=== PATIENT | female | born 1940 | race Caucasian/White ===

== ENCOUNTER 2019-06-07 09:30 | Inpatient (IN) | payer OTHER ==
[2019-05-30 12:41] VITALS: BMI 34.9
[2019-07-12] MEDS ORDERED: TRANEXAMIC ACID 1000 MG/10 ML VIAL IVPUSH ONE (07:26)
[2019-07-12] MEDS ORDERED: CEFAZOLIN 1 GM/D5W 1 GRAM/50 ML BAG IVPB ONE (07:26)
--- NOTE | 2019-07-12 07:58 | HP ---
[facility] - Chief Complaint Chief Complaint: right hip pain - Past Medical History Allergies/Adverse Reactions: Allergies Allergy/AdvReac Type Severity Reaction Status Date / Time No Known Allergies Allergy Verified 07/12/19 07:28 - Current Medications Current Medications: Home Medications Medication Instructions Recorded Travoprost [Travatan Z] 2.5 ml OU DAILY 02/06/14 Cholecalciferol (Vitamin D3) 2,000 unit PO DAILY 05/30/19 [Vitamin D] Donepezil HCl 10 mg PO HS 05/30/19 Metoprolol Succinate 50 mg PO AM 05/30/19 Metoprolol Succinate 100 mg PO HS 05/30/19 Satellite Physical Exam - Physical Examination Vital Signs: Vital Signs Period Temp Pulse Resp BP Sys/Trammell Pulse Ox Last 24 Hr 97.7 F 79 18 140/81 100 General Appearance: Well Nourished, Well Developed, Alert & Oriented x3 ENT: Clear Lung: Normal air movement Heart: Regular rate & rhythm Extremities: Other (right hip- + ttp, decr rom, nvi, xrays show grade 4 hip djd) Neurological: Intact, Alert, Oriented Satellite Impression/Plan - Impression/Plan Impression: right hip djd Operative Procedure: right suki thr Date to be Performed: 07/12/19
[2019-07-12 08:31] LABS: INR 1.44 (0.82-1.09)
[2019-07-12] MEDS: oxyCODONE HCL 10 MG SUSTAINED ACTING TABLET PO ONE ×2 (08:40→18:46)
[2019-07-12] MEDS: CELECOXIB 200 MG CAPSULE PO ONE ×2 (08:40→18:47)
[2019-07-12] MEDS: GABAPENTIN 300 MG CAPSULE (FP) PO ONE ×2 (08:40→18:47)
[2019-07-12] MEDS ORDERED: DEXAMETHASONE SOD PHOSPHATE/PF 10 MG/ML SDV ONE (09:08)
[2019-07-12] MEDS ORDERED: EPINEPHrine/PF 1 MG/1 ML (1:1,000) AMPULE ONE (09:08)
[2019-07-12] MEDS ORDERED: MIDAZOLAM HCL 2 MG/2 ML SINGLE DOSE VIAL ONE (09:08)
[2019-07-12] MEDS ORDERED: VANCOMYCIN 1,000 MG VIAL (RESTRICTED TO ID ONLY) ONE (09:39)
[2019-07-12] MEDS ORDERED: ceFAZolin SODIUM 1 GM VIAL ONE ×2 (09:39→09:58)
[2019-07-12] MEDS ORDERED: METOPROLOL TARTRATE 5 MG/5 ML VIAL ONE (09:56)
[2019-07-12] MEDS ORDERED: PROPOFOL 20 ML ONE (09:58)
[2019-07-12] MEDS ORDERED: MAGNESIUM HYDROX 2400MG/30ML ORAL SUSPENSION 30 ML CUP PO PRN (10:15)
[2019-07-12] MEDS ORDERED: LACTATED RINGERS SOLUTION 1,000 ML IV SCH (10:15)
[2019-07-12] MEDS ORDERED: MAG HYDROX/AL HYDROX/SIMETH 30 ML UNIT-DOSE CUP PO PRN (10:15)
[2019-07-12] MEDS ORDERED: ONDANSETRON 4 MG/2 ML VIAL ONE (10:15)
[2019-07-12] MEDS ORDERED: DEXAMETHASONE SOD PHOSPHATE 4 MG/1 ML VIAL ONE (10:15)
[2019-07-12] MEDS ORDERED: SUCCINYLCHOLINE CHLORIDE 200 MG/10 ML SYRINGE ONE (10:25)
[2019-07-12] MEDS ORDERED: VANCOMYCIN 1,000 MG VIAL (RESTRICTED TO ID ONLY) IVPB ONE (11:10)
--- NOTE | 2019-07-12 11:35 | OP ---
Operative Note - Note: Operative Date: 07/12/19 (lloyd) Pre-Operative Diagnosis: right hip djd Operation: right suki thr Post-Operative Diagnosis: Same as Pre-op Surgeon: Chan Heard Leather Currier: Jani Burch Anesthesiologist/STEAMING MACHINE OPERATOR: Ilia Simeon Anesthesia: Spinal, Local Specimens Removed: femoral head Estimated Blood Loss (mls): 500 Operative Report Dictated: Yes
[2019-07-12 12:34] LABS: HEMATOCRIT 32.6 % (32.4-45.2); HEMOGLOBIN 10.3 GM/dl (10.7-15.3); MCHC 31.6 g/dl (32.0-36.0); MEAN CELL VOLUME 82.3 fl (80-96); PLATELET COUNT 185 K/MM3 (134-434); RBC 3.97 M/mm3 (3.60-5.2); RDW 28.1 % (11.6-15.6); WHITE BLOOD COUNT 12.4 K/mm3 (4.0-10.8)
--- NOTE | 2019-07-12 13:06 | SPEC ---
DATE OF OPERATION: 07/12/2019 PREOPERATIVE DIAGNOSIS: Degenerative joint disease right hip. POSTOPERATIVE DIAGNOSIS: Degenerative joint disease right hip. PROCEDURE PERFORMED: Right total hip replacement with robotic-assisted navigation (MAKOplasty). SURGICAL ATTENDING: Chan Heard MD MECHANICAL SOUND TECHNICIAN: PATTY Napier ANESTHESIA: Regional and spinal. CLOSURE: A Trident II press-fit 46 mm acetabulum, a No. 6 Accolade II femoral stem, a standard MDM head. Number 1 Vicryl for capsule and fascia, 0 and 2-0 subcutaneous, 3-0 V-Loc 90 for skin with skin glue, 4-0 undyed Vicryl for pin sites. ESTIMATED BLOOD LOSS: Approximately 150 mL. COMPLICATIONS: None. CONDITION: To the recovery room in stable condition. DESCRIPTION OF PROCEDURE: The patient was taken to the operating room on July 12, 2019. General and regional anesthesia was administered by the anesthesiologist. IV Kefzol and TXA were administered prophylactically prior to the case. The patient was placed in the lateral decubitus position will all prominences well-padded. The right hip area was prepped and draped in the usual sterile fashion. Using 3 small stab incisions over the iliac crest, 3 threaded pins were drilled in power fashion through the 2 tables of the crest. These pins were fastened and the navigation array for the Daniel navigation system. Next, a 12 to 15-cm curved longitudinal incision over the posterolateral aspect of the greater trochanter was incised. Hemostasis was achieved with Bovie cautery. Sharp dissection was carried down to level of the fascia. The fascia was opened the entire length of the incision, spreading the fibers of the gluteus lee ann in the direction of origin. A Charnley retractor was placed in this layer. Care was taken not to impale the sciatic nerve. The short external rotators were detached off the insertion of the greater trochanter and peeled off the capsule. A posterior capsulotomy was then performed. A check point was malleted into the greater trochanter and a point on the inferior pole of the patella was obtained as well. These 2 points were used to assess the preoperative offset and limb lengths of the hip. The hip was then dislocated. The femoral neck was then osteotomized down to the appropriate level as directed by the navigation device. Anterior and posterior retractors were placed, exposing the acetabulum. A circumferential labral excision was performed. A check point was malleted into the acetabulum as well. Multiple sites inside the acetabulum and around the rim were utilized to register the acetabulum with the navigation device. An excellent registration of less than 0.5 mm was obtained. The hip was then reamed with the appropriate reamer down to the appropriate depth, with the appropriate orientation and version as assessed on our preoperative plan for this patient. The reamer was removed and the acetabulum was inspected to have good bleeding surfaces throughout. The real acetabular cup was then malleted down into place, with the holes in the appropriate position, until an excellent fixation was obtained. No screws were necessary. The navigation device ensured appropriate orientation and version, with the depth as predetermined. The appropriate liner was then clipped into place. Attention was directed to the femur. The proximal femur was prepared by use a box chisel, a canal finder and serial broaches until the broach achieved excellent rigidity in the proximal femur with the appropriate version being applied. A calcar planer was used to smooth off the calcar flush with the trial components. A trial reduction with the appropriate head was done, and the hip was reduced. The hip was taken through a range of motion from full extension with external rotation to marked flexion, and was stable at 90 degrees of flexion. It was stable to marked abduction and internal rotation, with a positive hang test and negative telescoping. Limb lengths were ascertained visually as well as with the navigation device to be within the targeted range for this patient. The trial component was removed. The real component was then malleted into place. The head was cold welded to the trunnion, and the hip was reduced. Range of motion, stability and limb lengths were as described in the trial component. Then the hip was pulse antibiotic irrigated. Vancomycin powder was placed in the hip joint. The capsule was closed. The fascia was then closed as well using number 1 Vicryl interrupted suture, 0 and 2-0 subcutaneous, and 3-0 V-Loc for the skin. 4-0 undyed Vicryl was used to close the pin sites after the pins were removed. All check points were also removed. Sterile Aquacel dressing was applied. The patient was awakened from anesthesia and transferred into the supine position. Bilateral SCDs and an abduction pillow were placed. X-rays revealed excellent position of the components. The patient was transferred to the recovery room in stable condition, with no complications. Estimated blood loss was less than 100 mL. Cesar [id number]
[2019-07-12] MEDS ORDERED: PROMETHAZINE HCL 25 MG/1 ML VIAL IVPUSH PRN (14:08)
[2019-07-12] MEDS ORDERED: oxyCODONE HCL 5 MG TABLET PO PRN ×2 (14:08)
[2019-07-12] MEDS: ACETAMINOPHEN 325 MG TABLET (FP) PO SCH ×2 (15:02→20:30)
[2019-07-12] MEDS: ONDANSETRON 4 MG/2 ML VIAL IVPUSH PRN (17:10)
[2019-07-12] MEDS: CEFAZOLIN 1 GM/D5W 1 GRAM/50 ML BAG IVPB SCH (18:13)
[2019-07-12] MEDS: QUINAPRIL HCL 20 MG TABLET (FP) PO SCH (22:00)
[2019-07-12] MEDS: SENNOSIDES/DOCUSATE COMBO (SENNA PLUS) TABLET (UD) PO SCH (22:01)
[2019-07-12] MEDS: oxyCODONE HCL 10 MG SUSTAINED ACTING TABLET PO SCH (22:01)
[2019-07-12] MEDS: DONEPEZIL HCL 10 MG TABLET (FP) PO SCH (22:01)
[2019-07-12] MEDS: LATANOPROST 0.005% OPHTH SOLN 2.5ML BOTTLE OU SCH (22:02)
[2019-07-12] MEDS ORDERED: PT OWN MED DRAWER 7, Y5N ONE (22:07)
[2019-07-13] MEDS: CEFAZOLIN 1 GM/D5W 1 GRAM/50 ML BAG IVPB SCH (02:02)
[2019-07-13] MEDS: ACETAMINOPHEN 325 MG TABLET (FP) PO SCH ×4 (03:26→21:28)
[2019-07-13] MEDS: ONDANSETRON 4 MG/2 ML VIAL IVPUSH PRN (04:30)
[2019-07-13] MEDS: amLODIPine BESYLATE 2.5 MG TABLET (FP) PO SCH (06:13)
[2019-07-13 07:29] LABS: HEMATOCRIT 32.8 % (32.4-45.2); HEMOGLOBIN 10.6 GM/dl (10.7-15.3); MCHC 32.4 g/dl (32.0-36.0); MEAN CELL VOLUME 83.4 fl (80-96); MEAN PLT VOLUME 10.4 fl (7.5-11.1); PLATELET COUNT 163 K/MM3 (134-434); RBC 3.93 M/mm3 (3.60-5.2); RDW 27.6 % (11.6-15.6)
[2019-07-13] MEDS: SENNOSIDES/DOCUSATE COMBO (SENNA PLUS) TABLET (UD) PO SCH ×2 (09:02→21:29)
[2019-07-13] MEDS: MULTIVITAMINS (DAILY MVI) TABLET (FP) PO SCH (09:02)
[2019-07-13] MEDS: oxyCODONE HCL 10 MG SUSTAINED ACTING TABLET PO SCH ×2 (09:02→21:29)
[2019-07-13] MEDS: PANTOPRAZOLE 40 MG TABLET (FP) PO SCH (09:02)
[2019-07-13] MEDS: QUINAPRIL HCL 20 MG TABLET (FP) PO SCH ×2 (09:04→21:30)
--- NOTE | 2019-07-13 09:19 | PN ---
Progress Note (short form) - Note Progress Note: Ortho Pt seen and examined s/p right suki thr pod #1 Selected Entries 07/13/19 06:00 Temperature 97.5 F L Pulse Rate 72 Respiratory 18 Rate Blood Pressure 124/61 Laboratory Tests 07/13/19 06:45 WBC 13.0 H Hgb 10.6 L Hct 32.8 Plt Count 163 dressing c/d/i, calf soft, nt nvi a/p re-start coumadin tomorrow PT hip precautions dvt ppx pain control d/c home tomorrow if stable
[2019-07-13] MEDS ORDERED: WARFARIN NA 5 MG TABLET (UD) PO SCH (10:00)
[2019-07-13] MEDS ORDERED: PATIENT'S OWN MEDICATION (NON-FORMULARY) (Travoprost [Travatan Z] 2.5 ML) OU SCH (10:00)
--- NOTE | 2019-07-13 17:42 | PN ---
Progress Note, Physician Chief Complaint: s/p right total hip replacement under spinal anesthesia post op day one. 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 - Current Medication List Current Medications: Active Medications Acetaminophen (Tylenol -) 650 mg PO Q6H [facility] Stop: 07/15/19 14:59 Last Admin: 07/13/19 15:00 Dose: 650 mg Al Hydroxide/Mg Hydroxide (Mylanta Oral Suspension -) 30 ml PO Q4H PRN PRN Reason: DYSPEPSIA Amlodipine Besylate (Norvasc -) 2.5 mg PO AM [facility] Last Admin: 07/13/19 06:13 Dose: 2.5 mg Donepezil HCl (Aricept -) 10 mg PO HS [facility] Fentanyl (Sublimaze Injection -) 50 mcg IVPUSH [id number] PRN PRN Reason: PAIN-PACU ORDER X 4 DOSES ONLY Latanoprost (Xalatan 0.005% Eye Drops -) 1 drop OU HS [facility] Last Admin: 07/12/19 22:02 Dose: 1 drop Magnesium Hydroxide (Milk Of Magnesia -) 30 ml PO PRN PRN PRN Reason: CONSTIPATION Metoprolol Succinate (Toprol Xl -) 50 mg PO AM [facility] Last Admin: 07/13/19 06:11 Dose: Not Given Metoprolol Succinate (Toprol Xl -) 100 mg PO HS [facility] Last Admin: 07/12/19 22:02 Dose: Not Given Multivitamins/Minerals/Vitamin C (Tab-A-Vit -) 1 tab PO DAILY [facility] Last Admin: 07/13/19 09:02 Dose: 1 tab Oxycodone HCl (Roxicodone -) 5 mg PO Q3H PRN PRN Reason: PAIN LEVEL 1-5 Last Admin: 07/12/19 20:31 Dose: 5 mg Oxycodone HCl (Roxicodone -) 10 mg PO Q3H PRN PRN Reason: PAIN LEVEL 6-10 Oxycodone HCl (Oxycontin -) 10 mg PO BID [facility] Stop: 07/15/19 14:08 Last Admin: 07/13/19 09:02 Dose: 10 mg Pantoprazole Sodium (Protonix -) 40 mg PO DAILY [facility] Last Admin: 07/13/19 09:02 Dose: 40 mg Promethazine HCl (Phenergan Injection -) 12.5 mg IVPUSH Q6H PRN PRN Reason: NAUSEA-FOR RESCUE AFTER 15 MIN Quinapril HCl (Accupril -) 20 mg PO BID [facility] Last Admin: 07/13/19 09:04 Dose: 20 mg Senna/Docusate Sodium (Pericolace -) 2 tablet PO BID [facility] Last Admin: 07/13/19 09:02 Dose: 2 tablet Warfarin Sodium (Coumadin -) 5 mg PO DAILY [facility] - Objective Vital Signs: Vital Signs Temperature 97.8 F 07/13/19 14:05 Pulse Rate 79 07/13/19 14:05 Respiratory Rate 16 07/13/19 14:05 Blood Pressure 120/54 L 07/13/19 14:05 O2 Sat by Pulse Oximetry (%) 97 07/13/19 14:05 Constitutional: Yes: Well Nourished Cardiovascular: Yes: WNL Respiratory: Yes: WNL Gastrointestinal: Yes: WNL Labs: CBC, BMP 07/13/19 06:45 INR, PTT INR 1.44 (0.82-1.09) H 07/12/19 08:10 Assessment/Plan Pain controlled, vomited yesterday now resolved, no adverse reaction to anesthetic currently , dept of anesthesiology will sign off care at this time
[2019-07-13] MEDS ORDERED: PT OWN MED DRAWER 7, Y5N ONE (21:08)
[2019-07-13] MEDS: DONEPEZIL HCL 10 MG TABLET (FP) PO SCH (21:29)
[2019-07-13] MEDS: LATANOPROST 0.005% OPHTH SOLN 2.5ML BOTTLE OU SCH (21:30)
[2019-07-14] MEDS: ACETAMINOPHEN 325 MG TABLET (FP) PO SCH ×2 (03:19→08:54)
[2019-07-14 06:42] VITALS: TEMP 97.8
[2019-07-14] MEDS: amLODIPine BESYLATE 2.5 MG TABLET (FP) PO SCH (07:14)
--- NOTE | 2019-07-14 08:26 | PN ---
Progress Note (short form) - Note Progress Note: Ortho Pt seen and examined s/p right suki thr pod #2 Selected Entries 07/14/19 05:00 Temperature 97.8 F Pulse Rate 84 Respiratory 19 Rate Blood Pressure 109/51 L Laboratory Tests 07/14/19 06:50 WBC Pending Hgb Pending Hct Pending Plt Count Pending dressing c/d/i, calf soft, nt nvi a/p re-start coumadin PT hip precautions dvt ppx pain control d/c home today f/u in 1 week
--- NOTE | 2019-07-14 08:27 | DS ---
Physical Examination Vital Signs: Vital Signs Temperature 97.8 F 07/14/19 05:00 Pulse Rate 84 07/14/19 05:00 Respiratory Rate 19 07/14/19 07:57 Blood Pressure 109/51 L 07/14/19 05:00 O2 Sat by Pulse Oximetry (%) 95 07/14/19 07:57 Discharge Summary Reason For Visit: OSTEOARTHRITIS Procedures: Principal: right thr Hospital Course: admitted for elective right suki thr, uneventful post-op, stable for d/c Condition: Good - Instructions Diet, Activity, Other Instructions: Post-op Instructions-Total Hip Replacement Call the office for a follow-up appointment in 1 week - [phone] Aspirin 325mg daily for 6 weeks. Pain medication was sent into your pharmacy. Apply Graduated Compression Stockings (TEDs) to both lower extremities- remove daily for hygiene ONLY Apply Sequential Compression Device (SCDs) to both Lower extremities remove for PT and hygiene ONLY Apply cold packs to affected area for 15 minutes every 2 hours. Physical Therapist will come to your home for the first 5 days. You will be set up with outpatient PT at your first post-operative visit. Patient may ambulate as tolerated-encourage self care (at least every 2-3 hours while awake) with walker or cane Maintain Aquacel (waterproof) dressing to operative wound (will be removed by surgeon at first office visit) Shower with Aquacel dressing in place-if Aquacel integrity compromised, remove and apply dry sterile dressing and notify Orthopedist. DO NOT SHOWER unless Orthopedists approves without Aquacel dressing CONTACT THE OFFICE FOR ANY CHANGE IN YOUR CONDITION (for example-fever greater than 102 degrees, excessive bleeding from operative site, purulent drainage, severe swelling or pain) GO TO THE EMERGENCY ROOM IF THERE IS A MEDICAL EMERGENCY Hip Precautions: * Keep a rolled towel under affected heel while in bed or chair (to keep knee in extension) * Dependent upon approach: * Posterior - do not cross legs; do not sit on low chairs or toilets. * If you have any questions, please do not hesitate to call the office - [phone]. Referrals: Chan Heard MD [Staff Physician] - Disposition: VNS/HOME HEALTH CARE - Home Medications Comprehensive Discharge Medication List: Ambulatory Orders Travoprost [Travatan Z] 2.5 ml OU DAILY 02/06/14 Cholecalciferol (Vitamin D3) [Vitamin D3] 2,000 unit PO DAILY 05/30/19 Donepezil HCl 10 mg PO HS 05/30/19 Metoprolol Succinate 50 mg PO AM 05/30/19 Metoprolol Succinate 100 mg PO HS 05/30/19 Oxycodone HCl/Acetaminophen [Percocet 5-325 mg Tablet -] 1 - 2 tab PO Q6H #50 tab MDD 8 07/12/19
[2019-07-14 08:44] LABS: RDW 28.8 % (11.6-15.6); WHITE BLOOD COUNT 14.3 K/mm3 (4.0-10.8)
[2019-07-14 08:49] LABS: HEMATOCRIT 30.6 % (32.4-45.2); HEMOGLOBIN 9.9 GM/dl (10.7-15.3); MCH 26.8 pg (25.7-33.7); MCHC 32.3 g/dl (32.0-36.0); MEAN PLT VOLUME 10.3 fl (7.5-11.1); PLATELET COUNT 175 K/MM3 (134-434); RBC 3.69 M/mm3 (3.60-5.2)
[2019-07-14 08:59] VITALS: BP 112/56; PULSE 70
[2019-07-14] MEDS: QUINAPRIL HCL 20 MG TABLET (FP) PO SCH (09:02)
[2019-07-14] MEDS: oxyCODONE HCL 10 MG SUSTAINED ACTING TABLET PO SCH (09:03)
[2019-07-14] MEDS: MULTIVITAMINS (DAILY MVI) TABLET (FP) PO SCH (09:10)
[2019-07-14] MEDS: PANTOPRAZOLE 40 MG TABLET (FP) PO SCH (09:10)
[2019-07-14] MEDS: SENNOSIDES/DOCUSATE COMBO (SENNA PLUS) TABLET (UD) PO SCH (09:10)
[2019-07-14] MEDS ORDERED: WARFARIN NA 5 MG TABLET (UD) PO SCH (10:00)
--- NOTE | 2019-07-15 18:03 | PATH ---
Surgical Pathology Report Patient Name: FAMILIA PATTERSON Med. Rec. #: [id number] /Age/Gender: 1940 (Age: 79) / F Account: [id number] Location: [facility] MED-SURG Taken: 07/12/2019 Received: 07/12/2019 Reported: 07/15/2019 Physicians: Chan Heard M.D. Specimen(s) Received RIGHT FEMORAL HEAD Clinical History Osteoarthritis right hip Final Diagnosis FEMORAL HEAD, RIGHT, TOTAL HIP REPLACEMENT MAKOPASTY: BONE WITH DEGENERATIVE JOINT DISEASE. Electronically Signed Michelle Acosta M.D. Gross Description Received in formalin, labeled "right femoral head," is a 4.0 x 3.9 x 3.5 cm. femoral head with a 1.3 cm in length portion of femoral neck attached. The margin of resection is smooth. There is a 2.1 cm greatest dimension area of eburnation present. The remaining articular surface is sumner-yellow and focally granular. The underlying trabecular bone is yellow and hard. A bottling equipment sales representative section is submitted in one cassette, following decalcification. /07/14/2019 [facility]07/14/2019
== END 2019-07-14 10:50 | disposition home health service (06) | DRG 470 ==
LOC: FM/S 07-12 07:15
PROVIDERS: ADMIT Orthopaedic Surgery; ATTEND Orthopaedic Surgery
PROC: 8E0W0CZ Robotic Assisted Procedure of Trunk Region, Open Approach (ICD-10-PCS; 2019-07-12)
PROC: 0SR90JZ Replacement of Right Hip Joint with Synthetic Substitute, Open Approach (ICD-10-PCS; principal; 2019-07-12 10:22)
DX: M16.11 Unilateral primary osteoarthritis, right hip (principal); I10 Essential (primary) hypertension; E66.01 Morbid (severe) obesity due to excess calories; Z68.34 Body mass index [BMI] 34.0-34.9, adult
CPT/HCPCS: 36415; 73502-TC-RT-FY; 85027; 85610; 86850; 86900; 86901; 86922; 88305-TC; 88311-TC; 94760; 97116-GP; 97163-GP

== ENCOUNTER 2019-06-08 10:25 | Day surgery (SDC) | payer OTHER ==
[2019-06-08] MEDS ORDERED: FERRIC CARBOXYMALTOSE 750 MG in SODIUM CHLORIDE 250 ML IVPB ONE (12:00)
[2019-06-08 14:31] VITALS: BP 124/64; PULSE 71; TEMP 98.2
== END 2019-06-08 13:25 | disposition home or self-care (01) ==
LOC: JASU-ENDO 10:25 → JINFUSION 10:25 → JASU-ENDO 13:25
PROVIDERS: ATTEND Internal Medicine Gastroenterology
PROC: 3E033GC Introduction of Other Therapeutic Substance into Peripheral Vein, Percutaneous Approach (ICD-10-PCS; principal; 2019-06-08)
DX: D50.9 Iron deficiency anemia, unspecified (principal)
CPT/HCPCS: 96365; 96366; J1439

== ENCOUNTER 2019-06-15 10:28 | Day surgery (SDC) | payer OTHER ==
[2019-06-15] MEDS ORDERED: FERRIC CARBOXYMALTOSE 750 MG in SODIUM CHLORIDE 250 ML IVPB ONE (11:00)
[2019-06-15 11:37] VITALS: TEMP 97.8
[2019-06-15 13:06] VITALS: BP 156/94; PULSE 74
== END 2019-06-15 12:58 | disposition home or self-care (01) ==
LOC: JINFUSION 10:28
PROVIDERS: ATTEND Internal Medicine Gastroenterology
PROC: 3E033GC Introduction of Other Therapeutic Substance into Peripheral Vein, Percutaneous Approach (ICD-10-PCS; principal; 2019-06-15)
DX: D50.9 Iron deficiency anemia, unspecified (principal)
CPT/HCPCS: 96365; J1439